=== PATIENT | female | born 1985 | race Caucasian/White ===

== ENCOUNTER 2016-06-25 17:43 | Emergency (ER) | payer BC ==
[2016-06-25] MEDS ORDERED: METOCLOPRAMIDE HCL 10 MG TABLET PO ONE (18:30)
== END 2016-06-25 18:59 | disposition home or self-care (01) ==
LOC: ED 17:43
DX: O21.2 Late vomiting of pregnancy (principal); O26.892 Other specified pregnancy related conditions, second trimester; R19.7 Diarrhea, unspecified; Z3A.24 24 weeks gestation of pregnancy
CPT/HCPCS: 99283 ×2; A9270